=== PATIENT | female | born 1985 | race Caucasian/White ===

== ENCOUNTER 2019-12-29 16:13 | Emergency (ER) | payer MEDICAID, SELFPAY ==
[2019-12-29 16:26] VITALS: BP 149/63; PULSE 84; RESP 16; TEMP 37.2; BMI 18.0
[2019-12-29 16:29] VITALS: BP 149/63; PULSE 84; RESP 18; O2SAT 99; BMI 18.0
--- NOTE | 2019-12-29 16:53 | HMH.EDUTC ---
[facility] [place] Disposition Clinical Impression: Finger laceration Qualifiers: Encounter type: initial encounter Finger: index finger Damage to nail status: without damage Foreign body presence: without foreign body Laterality: left Qualified Code(s): S61.211A - Laceration without foreign body of left index finger without damage to nail, initial encounter Disposition: Home, Self-Care Condition on Discharge: Good Instructions: How to Care for a Laceration After Repair, DI for Laceration Repair -- Simple Additional Instructions: Keep the wound clean and dry. Keep a dressing on it if she is going to be getting it dirty. Watch the for signs of infection, such as redness, swelling, drainage, fever. etc. Give tylenol or ibuprofen for pain. Follow up with her regular doctor. Return in 7 to 10 days to have the sutures removed. GO TO THE ER FOR ANY WORSENING SYMPTOMS OR CONCERNS. Prescriptions: cephALEXin [Keflex 500mg Cap] 500 mg PO Q6H 10 Days #40 cap Transmission Status: Received by [id number] Referrals: Lake Shirley MD [Primary Care Provider] - Time of Disposition: 16:55 Medical Decision Making - Medical Records Medical records reviewed: No: I reviewed the patient's medical records. - Bebo Inquiry Pt receiving controlled substance: No Vital Signs: 12/29/19 16:26 12/29/19 16:29 12/29/19 17:00 Temperature 99 F 98.2 F Temperature Source Oral Pulse Rate 84 Pulse Rate [Right Brachial] 84 84 Respiratory Rate 16 18 18 Blood Pressure 149/63 H Blood Pressure [Right Arm] 149/63 H 149/63 H Blood Pressure Mean [Right Arm] 91 91 Blood Pressure Source [Right Arm] Automatic Cuff Automatic Cuff Blood Pressure Position [Right Arm] Sitting Sitting 02 Sat by Pulse Oximetry 99 Oxygen Delivery Method Room Air [facility] HPI - General Stated complaint: AO 12/28 1530 lac L hand Time Seen by Provider: 12/29/19 16:30 Mode of Arrival: Ambulatory Source of Information: Patient Limitations: No Limitations Description of Symptoms (Recalled from Triage Doc. by RN): PATIENT C/O LACERATION TO LEFT INDEX THAT SHE OBTAINED WHILE CUTTING UP SAUSAGES APPROX 30 MIN [employer]. PATIENT IS UP TO DATE ON HER TETANUS VACCINE HEENT Symptoms (Recalled from RN notes): No Resp Symptoms (Recalled from RN notes): No Skin Symptoms (Recalled from RN notes): Yes MS Symptoms (Recalled from RN notes): No Functional Status (Recalled from RN notes): WNL - History of Present Illness Provider Complaint: She was cutting sausage with a knife when she slipped and cut her left index finger. This happened right before she came in today. - Related Data Previous Rx's Medication Instructions Recorded cephALEXin [Keflex 500mg Cap] 500 mg PO Q6H 10 Days #40 cap 12/29/19 Allergies Allergy/AdvReac Type Severity Reaction Status Date / Time ketorolac [From Toradol] Allergy Verified 12/29/19 16:36 Penicillins Allergy Verified 10/03/17 16:21 tramadol Allergy Verified 10/03/17 16:21 - Worker's Comp Is this a Worker's Comp case?: No [facility] History - Hepatitis A Screen Drug use history?: No High risk sexual behaviors?: No History of sexually transmitted infection?: No Currently employed?: No Childcare worker?: No Do you have indoor plumbing?: Yes Do you have electricity?: Yes Attestation statement:: This patient has been screened for Hepatitis A risk factors. I have reviewed the patient's past medical history: Yes Medical History: Denies:: Diabetes Mellitus Type 1, Diabetes Mellitus Type 2, Hypertension Other Medical History: Denies: Other (gout) Other Surgeries: Yes: No Previous Surgery - Social History Smoking Status: Current every day smoker Tobacco Type: cigarettes # Packs/Day (cigarettes): 1 Alcohol Intake: never Occupational Status: other ROS Obtained: Yes All systems reviewed & no additional complaints - Constitutional Constitutional: Denies chills, Denies fever(s) - Integumentary/
[2019-12-29 17:00] VITALS: BP 149/63; PULSE 84; RESP 18; TEMP 36.8; O2SAT 99
== END 2019-12-29 17:03 | disposition home or self-care (01) ==
PROVIDERS: Emergency Provider Nurse Practitioner Family; PCP Emergency Medicine
DX: S61.211A Laceration without foreign body of left index finger without damage to nail, initial encounter (principal); W26.0XXA Contact with knife, initial encounter; Y92.010 Kitchen of single-family (private) house as the place of occurrence of the external cause; F17.210 Nicotine dependence, cigarettes, uncomplicated; Z88.0 Allergy status to penicillin
CPT/HCPCS: 12001; 99201

== ENCOUNTER 2020-06-28 18:53 | Emergency (ER) | payer MEDICAID, SELFPAY ==
[2020-06-28 18:54] VITALS: BP 137/81; PULSE 65; RESP 16; TEMP 36.6; O2SAT 99; BMI 19.5
--- NOTE | 2020-06-28 19:18 | HMH.EDUTC ---
[facility] [place] Disposition Clinical Impression: COVID-19 Disposition: Home, Self-Care Condition on Discharge: Good Instructions: DI for COVID-19 (Suspected or Confirmed ), Preventing the Spread of Coronavirus Discharge Instructions Additional Instructions: Drink plenty of fluids. Take tylenol for pain or fever. Return if you begin to have difficulty breathing. Follow up with your regular doctor. GO TO THE ER FOR ANY WORSENING SYMPTOMS Referrals: Lake Shirley MD [Primary Care Provider] - Time of Disposition: :20 Medical Decision Making - Medical Records Medical records reviewed: No: I reviewed the patient's medical records. - Bebo Inquiry Pt receiving controlled substance: No Vital Signs: 06/28/20 18:54 06/28/20 19:21 Temperature 97.8 F 97.8 F Temperature Source Oral Oral Pulse Rate 65 Pulse Rate [Right] 65 Respiratory Rate 16 16 Blood Pressure 137/81 Blood Pressure [Right Arm] 137/81 Blood Pressure Mean [Right Arm] 99 02 Sat by Pulse Oximetry 99 Orders (Tests/Meds): ORDERS Category Date Time Status Covid-19 Nasal PCR Sendout [facility] 06/28/20 19:00 Received [facility] [place] HPI - General Stated complaint: positive covid test at work Time Seen by Provider: 06/28/20 19:18 Mode of Arrival: Ambulatory Source of Information: Patient Description of Symptoms (Recalled from Triage Doc. by RN): pt request COVID test pt has no symptoms HEENT Symptoms (Recalled from RN notes): No Resp Symptoms (Recalled from RN notes): No Skin Symptoms (Recalled from RN notes): No MS Symptoms (Recalled from RN notes): No Functional Status (Recalled from RN notes): wnl - History of Present Illness Provider Complaint: She states that she works at [employer]. She is checked twice per week for covid there. Today, her swab was positive. She denies any symptoms other than she has had some nausea today. - Related Data Previous Rx's Medication Instructions Recorded cephALEXin [Keflex 500mg Cap] 500 mg PO Q6H 10 Days #40 cap 12/29/19 Allergies Allergy/AdvReac Type Severity Reaction Status Date / Time ketorolac [From Toradol] Allergy Verified 06/28/20 19:03 Penicillins Allergy Verified 06/28/20 19:03 tramadol Allergy Verified 06/28/20 19:03 - Worker's Comp Is this a Worker's Comp case?: No Is this an [facility] Worker's Comp?: No Is this a [facility] Worker's Comp?: No [facility] History - Hepatitis A Screen Drug use history?: No High risk sexual behaviors?: No History of sexually transmitted infection?: No Currently employed?: No Childcare worker?: No Do you have indoor plumbing?: Yes Do you have electricity?: Yes Attestation statement:: This patient has been screened for Hepatitis A risk factors. I have reviewed the patient's past medical history: Yes Medical History: Denies:: Diabetes Mellitus Type 1, Diabetes Mellitus Type 2, Hypertension Other Medical History: Denies: Other (gout) Other Surgeries: Yes: No Previous Surgery - Social History Smoking Status: Current every day smoker Tobacco Type: cigarettes # Packs/Day (cigarettes): 1 Alcohol Intake: never Occupational Status: other ROS Obtained: Yes All systems reviewed & no additional complaints - Constitutional Constitutional: Reports system reviewed and no additional complaints, except as docu - Eyes Eyes: Reports system reviewed and no additional complaints, except as docu - ENT Ears, Nose, Mouth, and Throat: Reports system reviewed and no additional complaints, except as docu - Cardiovascular Cardiovascular: Reports system reviewed and no additional complaints, except as docu - Respiratory Respiratory: Reports system reviewed and no additional complaints, except as docu - Gastrointestinal Gastrointestingal: Reports: system reviewed and no additional complaints, except as docu Physical Exam - General General appearance: alert, in no apparent distress - Head Head exam: atraumatic, normocephalic,
[2020-06-28 19:21] VITALS: BP 137/81; PULSE 65; RESP 16; TEMP 36.6; O2SAT 99
[2020-06-30 09:48] LABS: Covid-19 Nasal PCR Sendout P&C POSITIVE
--- NOTE | 2020-06-30 12:31 | PC.NURSE ---
PT NOTIFIED OF POSITIVE COVID RESULT
== END 2020-06-28 19:23 | disposition home or self-care (01) ==
PROVIDERS: Emergency Provider Nurse Practitioner Family; PCP Emergency Medicine
DX: U07.1 COVID-19 (principal); F17.210 Nicotine dependence, cigarettes, uncomplicated; Z88.0 Allergy status to penicillin
CPT/HCPCS: 99202; G0463; U0004

== ENCOUNTER 2020-09-23 19:06 | Emergency (ER) | payer MEDICAID, SELFPAY ==
[2020-09-23 19:10] VITALS: BP 123/92; PULSE 104; RESP 20; TEMP 36.6; O2SAT 99; BMI 21.1
--- NOTE | 2020-09-23 19:33 | HMH.EDUTC ---
[facility] [place] Clinical Impression: UTI (urinary tract infection) Qualifiers: Urinary tract infection type: acute cystitis Hematuria presence: without hematuria Qualified Code(s): N30.00 - Acute cystitis without hematuria Disposition: Home, Self-Care Condition on Discharge: Good Instructions: Urinary Tract Infection Additional Instructions: Increase fluids, water and not soda or tea. Can drink cranberry juice or cranberry extract. White front to back Wear cotton underwear Empty bladder after intercourse Start antibiotics immediately and make sure you take the full course although you may start to see improvement over the next 48 hours. You can eat yogurt or take probiotics to decrease diarrhea or yeast infection caused by the antibiotic Be sure to follow-up anytime for new or worsening symptoms in 48 hours for wound urine culture results be sure to let you PCP no recent urine for culture so they can request records and ensure that you have appropriate antibiotic if you are not getting better or getting worse. If symptoms worsen or do not improve return or be seen in the ER. Follow-up with primary care this week. Prescriptions: cephALEXin [Cephalexin 500mg Tab] 500 mg PO BID 7 Days #14 tab Transmission Status: Pending to [id number] Referrals: Lake Shirley MD [Primary Care Provider] - Time of Disposition: 19:35 Medical Decision Making - Bebo Inquiry Pt receiving controlled substance: No Vital Signs: 09/23/20 19:10 Temperature 97.8 F Temperature Source Oral Pulse Rate [Right Brachial] 104 H Respiratory Rate 20 Blood Pressure [Right Arm] 123/92 H Blood Pressure Mean [Right Arm] 102 Blood Pressure Source [Right Arm] Automatic Cuff Blood Pressure Position [Right Arm] Sitting 02 Sat by Pulse Oximetry 99 Oxygen Delivery Method Room Air [facility] HPI - General Chief complaint: Ur[facility] Stated complaint: right side pain Time Seen by Provider: 09/23/20 19:33 Mode of Arrival: Ambulatory Source of Information: Patient Limitations: No Limitations Description of Symptoms (Recalled from Triage Doc. by RN): PATIENT C/O RIGHT FLANK PAIN X 2 DAYS. HEENT Symptoms (Recalled from RN notes): No Resp Symptoms (Recalled from RN notes): No Skin Symptoms (Recalled from RN notes): No MS Symptoms (Recalled from RN notes): No Functional Status (Recalled from RN notes): WNL - History of Present Illness Provider Complaint: 35 yr old female presnets for rt flank pain and freq for 2 days - Related Data Previous Rx's Medication Instructions Recorded cephALEXin [Cephalexin 500mg Tab] 500 mg PO BID 7 Days #14 tab 09/23/20 Allergies Allergy/AdvReac Type Severity Reaction Status Date / Time ketorolac [From Toradol] Allergy Verified 06/28/20 19:03 Penicillins Allergy Verified 06/28/20 19:03 tramadol Allergy Verified 06/28/20 19:03 - Worker's Comp Is this a Worker's Comp case?: No [facility] History - Hepatitis A Screen Drug use history?: No High risk sexual behaviors?: No History of sexually transmitted infection?: No Currently employed?: No Childcare worker?: No Do you have indoor plumbing?: Yes Do you have electricity?: Yes Attestation statement:: This patient has been screened for Hepatitis A risk factors. I have reviewed the patient's past medical history: Yes Medical History: Denies:: Diabetes Mellitus Type 1, Diabetes Mellitus Type 2, Hypertension Other Medical History: Denies: Other (gout) Other Surgeries: Yes: No Previous Surgery - Social History Smoking Status: Current every day smoker Tobacco Type: cigarettes # Packs/Day (cigarettes): 1 Alcohol Intake: never Occupational Status: other ROS Obtained: Yes Systems reviewed as appropriate & no additional complaints - Constitutional Constitutional: Reports system reviewed and no additional complaints, except as docu, Denies body ache, Denies fatigue - Eyes Eyes: Reports system reviewed and no additional complaint
[2020-09-23 19:38] LABS: Apearance,Urine Cloudy (Clear); Color,Urine Dark Yellow (Yellow); Protein,Urine 1+ (Negative)
[2020-09-23 19:39] LABS: Bilirubin,Urine Negative (Negative); Blood, Urine 2+ (Negative); Glucose,Urine (UA) Negative (Negative); Ketones,Urine Negative (Negative); UTC Leukocyte Esterase,Urine 1+ (Negative); UTC Nitrate,Urine Positive (Negative); Urobilinogen,Urine 4 EU/dl (0.2)
[2020-09-23 19:40] VITALS: BP 123/92; PULSE 104; RESP 20; TEMP 36.6; O2SAT 99
== END 2020-09-23 19:45 | disposition home or self-care (01) ==
PROVIDERS: Emergency Provider Nurse Practitioner Family; PCP Emergency Medicine
DX: N30.00 Acute cystitis without hematuria (principal); B96.20 Unspecified Escherichia coli [E. coli] as the cause of diseases classified elsewhere; Z88.0 Allergy status to penicillin; F17.210 Nicotine dependence, cigarettes, uncomplicated
CPT/HCPCS: 81003; 87086; 87088; 87186; 99202; G0463

== ENCOUNTER 2022-01-26 21:29 | Emergency (ER) | payer MEDICAID, SELFPAY ==
[2022-01-26 21:30] VITALS: BP 127/78; PULSE 68; RESP 18; TEMP 36.8; O2SAT 99; BMI 24.1
[2022-01-26 21:52] VITALS: BMI 24.1
--- NOTE | 2022-01-26 21:52 | XR_ITS ---
PROCEDURE INFORMATION: Exam: XR Right Wrist Exam date and time: 01/26/2022 9:51 PM Age: 36 years old Clinical indication: Injury or trauma; Fall; Blunt trauma (contusions or hematomas); Wrist; Right; Additional info: Fall obvious deformity to wrist right TECHNIQUE: Imaging protocol: Radiologic exam of the Right wrist. Views: 3 or more views. COMPARISON: No relevant prior studies available. FINDINGS: Bones/joints: There is a comminuted, impacted and mildly displaced intra-articular fracture of the distal right radial metaphysis with mild posterior angulation. There is ulnar styloid fracture which is mildly displaced. No dislocation. 1 mm corticated osseous density adjacent to the trapezium appears chronic. Soft tissues: Miles soft tissue swelling. IMPRESSION: 1. Comminuted intra-articular fracture of the distal right radial metaphysis with mild dorsal angulation. 2. Mildly displaced ulnar styloid fracture.
--- NOTE | 2022-01-26 22:34 | PC.NURSE ---
derick on phone with dr rey
--- NOTE | 2022-01-26 22:35 | HMH.EDUPEXT ---
ED Disposition Clinical Impression: Fracture of wrist Qualifiers: Encounter type: initial encounter Fracture type: closed Laterality: right Qualified Code(s): S62.101A - Fracture of unspecified carpal bone, right wrist, initial encounter for closed fracture Disposition: Home, Self-Care Condition on Discharge: Good Instructions: DI for Wrist Fracture Additional Instructions: ice and see ortho friday Referrals: Lake Sihrley MD [Primary Care Provider] - Darvin Mcgill MD [Staff Physician] - - Critical Care Critical Care Time: No Attestation: On 01/26/22, the high probability of a clinically significant, sudden or life threatening deterioration of the following system(s) required my full and direct attention, intervention and personal management. The time I documented below is in addition to time spent performing reported procedures but includes the following listed in this critical care notation. Medical Decision Making - Medical Records Medical records reviewed: Yes: I reviewed the patient's medical records. - Bebo Inquiry Pt receiving controlled substance: No Vital Signs: 01/26/22 21:30 Temperature 98.3 F Temperature Source Oral Pulse Rate [Right] 68 Respiratory Rate 18 Blood Pressure [Right Arm] 127/78 Blood Pressure Mean [Right Arm] 94 02 Sat by Pulse Oximetry 99 - Lab Data Lab results reviewed: Yes: I reviewed the patient's lab results. Orders (Tests/Meds): ED MEDICATIONS Discontinued Medications Generic Name Dose Route Start Last Admin Trade Name Freq PRN Reason Stop Dose Admin Hydrocodone Bitart/Acetaminophen 1 tab 01/26/22 23:37 01/26/22 23:39 Hydrocodone/Apap 5/325 Mg Tablet PO 01/26/22 23:38 1 tab ONCE ONE Administration - Radiology Data #1 Image(s): Wrist Image Reviewed: Yes I have reviewed radiologist's interpretation Preliminary Findings: Abnormal - CT Data CT Scan: Other (wrist ) Time Received: 23:[address] Reviewed: Yes: I have viewed the radiologist's interpretation Preliminary Findings: Abnormal - Physician Consults Physician Consulted: candido Reason -: Pt condition Medical Decision Narrative: pt with fall with wrist fx - will splint and pt see ortho friday Upper Extremity HPI - General Chief Complaint: Extremity Injury, Upper Stated Complaint: [id number] R wrist inj Time Seen by Provider: 01/26/22 22:35 Mode of Arrival: Ambulatory Source of Information: Patient, Relative, Medical Record Limitations: No Limitations Description of Symptoms (Recalled from ER Triage Doc. by RN): pt states was wrestling with brother and lost footing and landed on rt wrist. pt c/o rt wrist pain - History of Present Illness HPI narrative: fall with acute injury rt wrist tonight - no other sig c/o MD complaint: injury to: right, wrist Onset (ago): hour(s) Other Extremity Injury: Right: wrist Other injuries: head, RLE Handedness: right Place: home Severity: moderate Context: fall Associated symptoms: denies other symptoms - Related Data Previous Rx's Medication Instructions Recorded cephALEXin [Cephalexin 500mg Tab] 500 mg PO BID 7 Days #14 tab 09/23/20 Allergies Allergy/AdvReac Type Severity Reaction Status Date / Time ketorolac [From Toradol] Allergy Verified 06/28/20 19:03 Penicillins Allergy Verified 06/28/20 19:03 tramadol Allergy Verified 06/28/20 19:03 [facility] History - Hepatitis A Screen Attestation statement:: This patient has been screened for Hepatitis A risk factors. I have reviewed the patient's past medical history: Yes Medical History: Denies:: Diabetes Mellitus Type 1, Diabetes Mellitus Type 2, Hypertension Other Medical History: Denies: Other (gout) Other Surgeries: Yes: No Previous Surgery - Social History Smoking Status: Current every day smoker Tobacco Type: cigarettes # Packs/Day (cigarettes): 1 Alcohol Intake: never Occupational Status: other ROS Obtained: Yes All systems reviewed
--- NOTE | 2022-01-26 22:38 | CT_ITS ---
PROCEDURE INFORMATION: Exam: CT Right Upper Extremity Without Contrast, Wrist Exam date and time: 01/26/2022 10:45 PM Age: 36 years old Clinical indication: Injury or trauma; Fall; Blunt trauma (contusions or hematomas); Wrist; Right; Additional info: FX TECHNIQUE: Imaging protocol: Computed tomography of the Right upper extremity without contrast. Exam focused on the wrist. 3D rendering (Not supervised by radiologist): MIP and/or 3D reconstructed images were created by the technologist. Radiation optimization: All CT scans at this facility use at least one of these dose optimization techniques: automated exposure control; mA and/or kV adjustment per patient size (includes targeted exams where dose is matched to clinical indication); or iterative reconstruction. COMPARISON: CR XR WRIST RT MIN 3V 01/26/2022 9:51 PM FINDINGS: Bones/joints: There is a comminuted impacted intra-articular fracture of the distal right radial metaphysis with mild dorsal displacement and angulation. Dorsal displacement is estimated at 6 mm. There is mildly displaced ulnar styloid fracture. Carpal bones are intact. No dislocation. Soft tissues: Normal. IMPRESSION: 1. Comminuted, impacted intra-articular fracture of the distal right radial metaphysis. There is mild dorsal displacement and angulation. 2. Mildly displaced ulnar styloid fracture.
[2022-01-26 23:49] VITALS: BP 118/82; PULSE 61; RESP 16; TEMP 36.8; O2SAT 99
== END 2022-01-26 23:53 | disposition home or self-care (01) ==
PROVIDERS: Emergency Provider Emergency Medicine; PCP Emergency Medicine
DX: S62.101A Fracture of unspecified carpal bone, right wrist, initial encounter for closed fracture (principal); Y93.89 Activity, other specified; Y92.009 Unspecified place in unspecified non-institutional (private) residence as the place of occurrence of the external cause; Y99.8 Other external cause status
CPT/HCPCS: 73110; 73200; 99284

== ENCOUNTER → 2022-01-30 10:27 | Outpatient (CLI) | payer MEDICAID, SELFPAY ==
[2022-01-30 11:28] LABS: Urine Pregnancy, HCG Qual. Negative (Negative)
[2022-01-30 11:31] LABS: Basophils # 0.1 K/mm3 (0-0.2); Basophils % 0.8 % (0.1-2.0); Eosinophils # 0.1 K/mm3 (0.0-0.4); Eosinophils % 0.7 % (0.1-12.0); Hematocrit 40.6 % (37.0-47.0); Hemoglobin 12.8 g/dL (12.2-16.2); Lymphocytes # 2.2 K/mm3 (0.7-4.5); Mean Corpuscular HGB Conc 31.4 g/dL (31.8-35.4); Mean Corpuscular Hemoglobin 32.2 pg (27.0-31.2); Mean Corpuscular Volume 102.4 fl (81-99); Mean Platelet Volume 9.9 fl (7.4-10.4); Monocytes # 0.5 K/mm3 (0.1-1.0); Monocytes % 3.3 % (1.7-9.3); Neutrophils # 11.8 K/mm3 (1.8-7.8); Neutrophils % 80.1 % (37.0-80.0); Platelet Count 321 K/mm3 (142-424); Red Blood Count 3.96 M/mm3 (4.20-5.40); White Blood Count 14.8 K/mm3 (4.8-10.8)
[2022-01-30 12:48] LABS: Alanine Aminotransferase 21 U/L (12-78); Albumin/Globulin Ratio 1.5 (1.1-1.8); Alkaline Phosphatase 91 U/L (38-126); Anion Gap 10.6 mEq/L (5-15); Aspartate Amino Transferase 26 U/L (14-36); Bilirubin,Total < 0.1 mg/dl (0.2-1.3); Blood Urea Nitrogen 6 mg/dl (7-17); Calcium 9.3 mg/dl (8.4-10.2); Carbon Dioxide 25 mmol/L (22.0-30.0); Chloride 110 mmol/L (98-107); Estimated Glomerular Filt Rate 140 ml/min (>60); GFR (African American) 170 ML/MIN (>60); Globulin 2.6 g/dL (1.3-3.2); Glucose 83 mg/dl (74-100); Potassium 3.6 mmoL/L (3.5-5.1); Sodium 142 mmol/L (136-145); Total Protein,Serum 6.6 g/dl (6.3-8.2)
== END ==
PROVIDERS: PCP Emergency Medicine; Visit Provider Orthopaedic Surgery
DX: Z01.812 Encounter for preprocedural laboratory examination (principal); Z20.822 Contact with and (suspected) exposure to COVID-19; S62.101A Fracture of unspecified carpal bone, right wrist, initial encounter for closed fracture
CPT/HCPCS: 36415; 80053; 81025; 85025; C9803; U0003; U0005

== ENCOUNTER → 2022-02-04 14:02 | Outpatient (CLI) | payer MEDICAID, SELFPAY ==
--- NOTE | 2022-02-04 14:20 | XR_ITS ---
FINAL REPORT CLINICAL HISTORY: pre-op; NICOTINE DEPENDENCE FINDINGS: 2 views of the chest were obtained . The heart is normal in size. The mediastinum is within normal limits. The lungs are clear. There is no pneumothorax. Osseous structures are unremarkable. IMPRESSION: No acute cardiopulmonary process. Reviewed, Interpreted and Dictated by Gorge Rasmussen III, MD Transcribed by Meggan Fraga Authenticated and [facility]
[2022-02-04 15:12] LABS: Basophils # 0.1 K/mm3 (0-0.2); Basophils % 0.7 % (0.1-2.0); Eosinophils # 0.3 K/mm3 (0.0-0.4); Hematocrit 42.7 % (37.0-47.0); Hemoglobin 13.2 g/dL (12.2-16.2); Lymphocytes # 3.1 K/mm3 (0.7-4.5); Mean Corpuscular Volume 99.9 fl (81-99); Mean Platelet Volume 9.6 fl (7.4-10.4); Monocytes # 0.6 K/mm3 (0.1-1.0); Monocytes % 4.1 % (1.7-9.3); Neutrophils # 9.4 K/mm3 (1.8-7.8); Neutrophils % 70.3 % (37.0-80.0); Platelet Count 386 K/mm3 (142-424); Red Blood Count 4.27 M/mm3 (4.20-5.40); Red Cell Distribution Width 12.6 % (11.5-17.5); White Blood Count 13.4 K/mm3 (4.8-10.8)
[2022-02-04 19:02] LABS: Magnesium 1.7 mg/dl (1.6-2.3)
[2022-02-04 20:04] LABS: Vitamin B12 926 pg/mL (239-931)
[2022-02-04 20:07] LABS: Folate 4.06 ng/mL
== END ==
PROVIDERS: PCP Orthopaedic Surgery; Visit Provider Emergency Medicine
DX: S62.101A Fracture of unspecified carpal bone, right wrist, initial encounter for closed fracture (principal); R89.9 Unspecified abnormal finding in specimens from other organs, systems and tissues
CPT/HCPCS: 36415; 71046; 82607; 82746; 83735; 85025

== ENCOUNTER → 2022-02-05 15:12 | Outpatient (CLI) | payer MEDICAID, SELFPAY ==
[2022-02-05 15:14] LABS: Microscopic, Urine URINE MICROSCOPIC (MICROSCOPIC)
[2022-02-05 17:42] LABS: Appearance,Urine CLEAR (Clear); Bilirubin,Urine Negative (Negative); Blood, Urine Negative (Negative); Color,Urine YELLOW (Yellow); Glucose,Urine (UA) Negative (Negative); Ketones,Urine Negative (Negative); Leukocyte Esterase,Urine Negative (Negative); Nitrate,Urine Negative (Negative); PH,Urine 6.5 (5.0-8.5); Protein,Urine Negative (Negative); Specific Gravity, Urine 1.025 (1.005-1.030); Urobilinogen,Urine 0.2 EU/dl (0.2)
[2022-02-05 17:58] LABS: WBC,Urine Occasional #/hpf (0-3)
[2022-02-05 17:59] LABS: Bacteria,Urine Trace /lpf
== END ==
PROVIDERS: PCP Emergency Medicine; Visit Provider Orthopaedic Surgery
DX: D72.829 Elevated white blood cell count, unspecified (principal)
CPT/HCPCS: 81001

== ENCOUNTER 2022-02-07 10:59 | Day surgery (SDC) | payer MEDICAID, SELFPAY ==
[2022-01-31 09:53] VITALS: BMI 23.6
--- NOTE | 2022-02-01 07:25 | SUR.PREOP ---
Pt notified that Dr. Mcgill wants to postpone surgery until Friday. Pt to come in today for CXR and UA and also see Dr. Shirley today. Pt verbalized understanding.
[2022-02-07] VITALS (12 sets, daily range): BP systolic 107–145; BP diastolic 68–96; PULSE 55–77; RESP 10–18; TEMP 36.2–43; O2SAT 93–98
[2022-02-07 11:21] LABS: Coronavirus 19, PCR Not Detected (NotDetected); Influenza A, PCR Not Detected (NotDetected); Influenza B, PCR Not Detected (NotDetected)
[2022-02-07 11:44] LABS: Basophils # 0.1 K/mm3 (0-0.2); Basophils % 0.7 % (0.1-2.0); Eosinophils # 0.2 K/mm3 (0.0-0.4); Eosinophils % 1.1 % (0.1-12.0); Hematocrit 41.9 % (37.0-47.0); Hemoglobin 13.2 g/dL (12.2-16.2); Lymphocytes # 1.9 K/mm3 (0.7-4.5); Lymphocytes % 10.9 % (10-50); Mean Corpuscular HGB Conc 31.5 g/dL (31.8-35.4); Mean Corpuscular Hemoglobin 32.3 pg (27.0-31.2); Mean Corpuscular Volume 102.6 fl (81-99); Mean Platelet Volume 9.8 fl (7.4-10.4); Monocytes # 0.6 K/mm3 (0.1-1.0); Monocytes % 3.3 % (1.7-9.3); Neutrophils # 14.6 K/mm3 (1.8-7.8); Platelet Count 332 K/mm3 (142-424); Red Blood Count 4.09 M/mm3 (4.20-5.40); Red Cell Distribution Width 13.2 % (11.5-17.5); White Blood Count 17.4 K/mm3 (4.8-10.8)
[2022-02-07 11:45] LABS: MANUAL DIFFERENTIAL MANUAL DIFFERENTIAL (MANUAL DIFF)
[2022-02-07 11:53] LABS: HCG Qualitative, Serum Negative (Negative)
[2022-02-07 12:29] LABS: Eosinophils % 1 % (0-3); Lymphocytes % 11 % (10-50); Macrocytosis 1+; Monocytes % 2 % (2-9); Neutrophils % 86 % (42-76); Platelet Estimate Normal; Total Cells Counted 100
--- NOTE | 2022-02-07 12:53 | SUR.PREOP ---
Spoke to MD Cantu @ 1250 regarding pt's continued elevated WBC and neutrophil count. MD Cantu looked at pt's chart and stated since their are no clear s/s of infection-it could be d/t broken wrist and he is fine with proceeding with scheduled surgery. MD Mcgill and OR team made aware at this time.
--- NOTE | 2022-02-07 14:21 | P.PNANES_ITS ---
[facility] Anesthesia Record Part I Anesthesia Record I Intake, IV Amount: 1,200 Estimated blood loss (mL): 100 Urine output (mL): 100 Blood Pressure: 107/68 SaO2: 96 Pulse Rate: 55 Respiratory Rate: 10 Temperature: 97.1 F Patient is:: Drowsy Stable to PACU at:: 14:13
--- NOTE | 2022-02-07 14:50 | P.PN_ITS ---
PFSH PFSH Medical History (Updated 02/07/22 @ 13:02 by Akilah Nicole RN) COVID-19 UTI (urinary tract infection) Surgical History No history of previous surgery Family History Other Epilepsy Heart attack Hypertension Social History (Updated 02/07/22 @ 13:06 by Akilah Nicole RN) Smoking Status: Current every day smoker tobacco type: cigarettes packs per day: 1 years smoked: 10 alcohol intake: current substance use type: denies use current occupational status: unemployed Travel in the last 8 weeks: None [facility] Anesthesia Checklist Patient Identification Patient Identification: Arm Band and Verbal (Name & ) Structural Data Admitted From: Inpatient Planned Operative Procedure/s: Right ORIF Consent for Planned Operative Procedure(s) Verified: Yes Verified Documents: Surgical Consent NPO Status Verified Time NPO: 00:00 Chart Verification Results Verified: HCG Additional verifications Anesthesia Reactions: No Hx Blood Transfusions: No Blood Transfusion Reaction: No Cephalosporin Allergy: No Airway Assessment C-Spine Mobility Assessed: Yes TMJ Mobility Assessed: Yes Dentition: Edentulous Neurological Assessment Level of Consciousness: Awake, Alert and Appropriate Psychosocial Assessment Concerns Regarding Surgery: none Anesthesia Plan Anesthesia Risk discussed: Yes ASA Class: II Anesthesia Type: General
--- NOTE | 2022-02-07 16:01 | XR_ITS ---
PROCEDURE INFORMATION: Exam: XR Right Wrist Exam date and time: 02/07/2022 2:40 PM Age: 36 years old Clinical indication: Pain; Wrist; Right; Additional info: Orif to right wrist. Surgery. TECHNIQUE: Imaging protocol: Radiologic exam of the Right wrist. Views: 1 or 2 views. COMPARISON: CT WRIST RT WO CON 01/26/2022 10:45 PM FINDINGS: Bones/joints: Intraoperative fixation of the right wrist. Plate and screws in place along the distal radius. Soft tissues: Normal. Other findings: Forty-one images obtained. IMPRESSION: 1. Intraoperative fixation of the right wrist. 2. Plate and screws in place along the distal radius.
--- NOTE | 2022-02-07 16:48 | P.PNANES_ITS ---
[facility] Anesthesia Record Part I Anesthesia Record I Intake, IV Amount: 800 Estimated blood loss (mL): 20 Urine output (mL): 0 Blood Pressure: 129/83 SaO2: 93 Pulse Rate: 77 Respiratory Rate: 12 Temperature: 97.4 F Patient is:: Drowsy Stable to PACU at:: 16:45
--- NOTE | 2022-02-07 21:40 | EXP.OP.NOTE ---
Date of procedure: 02/07/22 Pre-op Diagnosis:: Closed, comminuted, displaced intra-articular fracture, right distal radius Post-op Diagnosis:: Same Procedure performed:: Open reduction internal fixation, displaced fracture, right wrist Surgeon:: Darvin Mcgill MD Sales And Service Change Leader(s):: Edna Dias PA-C SOLE POLISHER:: Other (Gilberto Erickson) Anesthesia: LMA Estimated blood loss (mL): 5 Clinical Note:: Patient is a 36-year-old right-hand dominant female who sustained a closed displaced intra-articular fracture of the right distal radius following a mechanical fall about 12 days ago. Evaluation including x-rays and CT scan of the wrist showed a closed, comminuted, and displaced intra-articular fracture of the distal radius. The fracture was extending into the radiocarpal joint. Following evaluation in the office and discussion with the patient about the management options, including both nonsurgical and surgical, patient elected to proceed with surgical remediation. Patient was initially scheduled for surgery last week but surgery had to be delayed as she had elevated white cell count. Evaluation including chest x-ray and urine exam were normal. Patient was also seen by her primary care physician and cleared for surgery. Her white cell count today went up further but Dr. Cantu has recommended proceeding with surgery. Patient does not have any signs or symptoms concerning for ongoing infection. Please refer to my office note for full details. Operative findings:: Displaced, comminuted and unstable intra-articular fracture of the right distal radius as noted on the preoperative imaging. Bone quality is good. Operative note:: After appropriate workup, the patient is brought to the hospital for surgery. On the day of surgery, I met the patient in the preoperative area and again discussed the details of the procedure, risks and benefits, alternatives, and the expected outcomes. The complications discussed include but are not limited to infection, bleeding, injury to nerves, tendons and blood vessels, incisional scar (cosmesis), DVT/PE, malunion, nonunion/delayed union, loss of position, re-fracture, wrist/finger stiffness, CRPS (complex regional pain syndrome- pain, sensory and temperature changes, swelling and stiffness), painful/prominent hardware, loss of fixation/hardware failure, incomplete relief of pain, incomplete return of function, posttraumatic arthritis and likely need for further surgery in future and also the risks of anesthesia including heart attack, stroke, and . I have also explained how additional surgery may be required if there are any complications or the fracture fails to heal. We have also discussed the postoperative pain management, recovery and rehabilitation, immobilization required, the likely need for physical therapy, the possibility of stiffness, chronic pain and we've also discussed the option of nonsurgical treatment. Patient expressed a full understanding and wished to proceed with surgery as planned. The operative site/side was marked and initialed by me. Patient understood the risks, agreed to proceed with surgery, signed the consent form and no guarantees or assurances were given or implied. Patient was brought to the operating room and placed supine on the table. The right upper extremity was placed over an arm table. All the bony prominences were well padded. A general anesthesia was administered by the hyperion analyst. ?A well-padded tourniquet cuff was applied over the upper arm. The right upper extremity was prepped and draped in the usual sterile fashion. A preprocedure timeout was performed as per hospital protocol. ?Administration of prophylactic IV antibiotics (2 g of IV Ancef) was confirmed prior to starting the procedure. The skin incision was marked over the distal forearm anteriorly for the extended FCR volar approach to distal radius. Limb was exsanguinated with Esmarch bandage and tourniquet was inflated to 250 mmHg.
== END 2022-02-07 17:46 | disposition home or self-care (01) ==
PROVIDERS: PCP Emergency Medicine; Visit Provider Orthopaedic Surgery
PROC: (CPT 25608; principal; 2022-02-07 13:30)
DX: S52.571A Other intraarticular fracture of lower end of right radius, initial encounter for closed fracture (principal); S52.611A Displaced fracture of right ulna styloid process, initial encounter for closed fracture; Z20.822 Contact with and (suspected) exposure to COVID-19; W03.XXXA Other fall on same level due to collision with another person, initial encounter
CPT/HCPCS: 25608; 36415; 73100; 84703; 85007; 85025; 96374; C9803; J2405; U0003; U0005

== ENCOUNTER → 2022-02-19 09:39 | Outpatient (CLI) | payer MEDICAID, SELFPAY ==
--- NOTE | 2022-02-19 09:48 | XR_ITS ---
FINAL REPORT CLINICAL HISTORY: s/p wrist SURGERY..PAIN COMPARISON: January 26, 2022 FINDINGS: RIGHT WRIST 3 views were obtained. A splint is present which obscures some detail. There has been interval postoperative changes from ORIF of a distal radial fracture. A screw plate and multiple screws are now present. Also noted is a fracture of the ulnar styloid process. The joint spaces are intact. There is no soft tissue abnormality. IMPRESSION: Postoperative change as described. Reviewed, Interpreted and Dictated by Gorge Rasmussen III, MD Transcribed by Dyana Cr Authenticated and [facility]
== END ==
PROVIDERS: PCP Emergency Medicine; Visit Provider Orthopaedic Surgery
DX: S62.101A Fracture of unspecified carpal bone, right wrist, initial encounter for closed fracture (principal)
CPT/HCPCS: 73110

== ENCOUNTER → 2022-03-05 10:07 | Outpatient (CLI) | payer MEDICAID, SELFPAY ==
--- NOTE | 2022-03-05 10:14 | XR_ITS ---
FINAL REPORT CLINICAL HISTORY: wrist fracture, f/u, out of cast COMPARISON: February 19, 2022 FINDINGS: Right wrist Three views were obtained. Redemonstration of ulnar styloid process fracture. Post ORIF changes of the distal radius. Hardware is unremarkable. Comminuted fracture of the radial metaphysis without significant displacement. IMPRESSION: Stable post ORIF changes. Reviewed, Interpreted and Dictated by Shiela Jacobs MD Transcribed by Ramakrishna Patterson Authenticated and [facility]
== END ==
PROVIDERS: PCP Emergency Medicine; Visit Provider Physician Assistant Surgical
DX: S62.101A Fracture of unspecified carpal bone, right wrist, initial encounter for closed fracture (principal)
CPT/HCPCS: 73110

== ENCOUNTER 2022-03-05 11:11 | Outpatient (RCR) | payer MEDICAID, SELFPAY | END 2022-03-05 12:15 | disposition home or self-care (01) | LOC: OT 11:11 | PROVIDERS: Visit Provider Orthopaedic Surgery | DX: Z09 Encounter for follow-up examination after completed treatment for conditions other than malignant neoplasm (principal); S62.101A Fracture of unspecified carpal bone, right wrist, initial encounter for closed fracture | CPT/HCPCS: 97763 ==

== ENCOUNTER → 2022-04-05 11:54 | Outpatient (CLI) | payer MEDICAID, SELFPAY ==
--- NOTE | 2022-04-05 11:58 | XR_ITS ---
FINAL REPORT CLINICAL HISTORY: s/p ORIF rt wrist COMPARISON: February 2022 FINDINGS: 3 views of the right wrist were obtained. There is postoperative change from ORIF of a distal radius fracture. An ulnar stool a process fracture is again seen. Bony alignment is stable. IMPRESSION: Stable postoperative change. Reviewed, Interpreted and Dictated by Gorge Rasmussen III, MD Transcribed by Ramakrishna Patterson Authenticated and [facility]
== END ==
PROVIDERS: PCP Emergency Medicine; Visit Provider Physician Assistant Surgical
DX: S62.101A Fracture of unspecified carpal bone, right wrist, initial encounter for closed fracture (principal)
CPT/HCPCS: 73110

== ENCOUNTER 2022-04-08 13:00 | Outpatient (RCR) | payer MEDICAID, SELFPAY ==
--- NOTE | 2022-03-12 11:21 | HMH.OTOPEV ---
OT Inpatient Evaluation Rehab OT Outpatient Eval Start: 03/12/22 11:11 Freq: Status: Active Protocol: Document 03/12/22 11:12 [facility] (Rec: 03/12/22 11:21 BR[facility]NN [id number]) E-signed By Janes Motley, OT Outpatient Therapy Subjective History Subjective History Pt is a 36 year old female who reports to therapy for initial evaluation to right wrist. Pt would was wrestling with her brother when she fell and fractured rigth wrist on 01/26/22; 1. Comminuted, impacted intra-articular fracture of the distal right radial metaphysis. Mild dorsal displacement and angulation. 2. Mildly displaced ulnar styloid fracture. Pt required a open reduction internal fixation, displaced fracture, right wrist on . Pt is currently 1 week out from having cast removed and is now in a wrist cock up brace. Pt demonstrates with decreased AROM and strength at right wrist; pt is right hand dominant. Pt will continue to be seen in order to address right wrist deficits. Chief Complaint Pain,Stiff,Weakness,Decreased Vpk Teacher Strength Symptom Type Ache,Throb,Sharp,Dull,Stabbing Symptoms Relieved By Rest/Positioning Symptoms Aggravated By Physical Activity,Twisting, Lifting Prior Functional Limitations None Current Functional Limitations Reaching,Lifting,Housework, Dressing,Sleeping,Recreation Activity Symptom Description Intermittent,Activity Dependent Level of pain today (0-10) 7 Pain scale - at its best (0-10) 0 Pain scale - at its worst (0-10) 10 Wrist/Hand Eval Wrist Range of Motion Right Wrist Extension Active Range of Motion ( 8 degrees degrees) Wrist Flexion Active Range of Motion ( 26 degrees degrees) Wrist Radial Deviation Active Range of 15 degrees Motion (degrees) Wrist Ulnar Deviation Active Range of 12 degrees Motion (degrees) Forearm Supination Active Range of 70 degrees Motion (degrees)
== END 2022-04-08 13:05 | disposition home or self-care (01) ==
LOC: OT 13:00
PROVIDERS: PCP Emergency Medicine; Visit Provider Orthopaedic Surgery
DX: S62.101A Fracture of unspecified carpal bone, right wrist, initial encounter for closed fracture (principal); Z09 Encounter for follow-up examination after completed treatment for conditions other than malignant neoplasm
CPT/HCPCS: 97010; 97014; 97110; 97140; 97166; 97530; G0283

== ENCOUNTER → 2023-01-29 08:32 | Outpatient (CLI) | payer MEDICAID, SELFPAY ==
--- NOTE | 2023-01-29 08:35 | XR_ITS ---
FINAL REPORT CLINICAL HISTORY: foot pain on plantar surface of foot on the lateral side COMPARISON: 10/03/2017 FINDINGS: Right foot Three views were obtained. There is no acute fracture or dislocation. The joint spaces appear normal. No soft tissue abnormality is identified. IMPRESSION: No acute process. Reviewed, Interpreted and Dictated by Girma Chen MD Transcribed by Maryana Saavedra Authenticated and [facility]
== END ==
PROVIDERS: PCP Emergency Medicine; Visit Provider Nurse Practitioner Family
DX: M79.671 Pain in right foot (principal)
CPT/HCPCS: 73630

== ENCOUNTER 2023-05-16 19:21 | Emergency (ER) | payer MEDICAID, SELFPAY ==
[2023-05-16 19:23] VITALS: BP 136/96; PULSE 95; RESP 16; TEMP 36.9; O2SAT 97; BMI 21.1
[2023-05-16 19:39] LABS: Microscopic, Urine URINE MICROSCOPIC (MICROSCOPIC)
[2023-05-16 19:45] LABS: Appearance,Urine CLEAR (Clear); Bilirubin,Urine Negative (Negative); Blood, Urine Negative (Negative); Color,Urine YELLOW (Yellow); Glucose,Urine (UA) Negative (Negative); Ketones,Urine Negative (Negative); Leukocyte Esterase,Urine 1+ (Negative); Nitrate,Urine Negative (Negative); PH,Urine 5.5 (5.0-8.5); Protein,Urine Negative (Negative); Specific Gravity, Urine <= 1.005 (1.005-1.030); Urobilinogen,Urine 0.2 EU/dl (0.2)
[2023-05-16 20:09] LABS: Bacteria,Urine Trace /lpf
--- NOTE | 2023-05-16 20:12 | PC.NURSE ---
in room talking with patient at this time.
[2023-05-16 20:19] VITALS: BP 128/81; PULSE 90; RESP 16; TEMP 36.9; O2SAT 98
--- NOTE | 2023-05-16 21:52 | HMH.EDGENADL ---
Discharge Plan Disposition Patient Disposition: Home, Self-Care Prescriptions Prescriptions: New methocarbamol 500 mg tablet 500 mg PO Q6H PRN (Reason: pain) Qty: 30 0RF Referrals Follow up/Referrals: Agnes Coronado PA [Primary Care Provider] - See instructions Activity Restrictions/Add. Instructions Additional Instructions/Restrictions: Please follow-up with your primary care provider. Please return to the emergency department if you develop any new or worsening symptoms or become concerned for your health. Please take Robaxin as needed for pain. Please take Tylenol or Profen as needed for pain. Clinical Impressions Clinical Impression: Muscle strain of chest wall Instructions Patient Instructions: DI for Acute Abdominal Pain Discharge ED Provider: Colin Jose Adult HPI General Chief complaint: Abdominal Pain Stated complaint: lt side pain Time Seen by Provider: 05/16/23 19:42 Mode of Arrival: Ambulatory Source of Information: Patient Limitations: No Limitations Description of Symptoms (Recalled from ER Triage Doc. by RN): pt c/o LLQ pain x 3 days. pt denies n/v/d. pt states pain increasing with coughing. History of Present Illness HPI narrative: 37-year-old female, history of smoking, presents with focal left lower chest wall pain that is worse with moving around and worse with coughing or laughing. She reports no significant recent trauma, but does move around a lot. She does not remember a particular time of onset. She has a chronic smoker's cough but it is not worse than normal. She has had no fevers, no urinary symptoms, no prior abdominal surgeries, denies abdominal pain. Related Data Previous Rx's Medication Instructions Recorded methocarbamol 500 mg tablet 500 mg PO Q6H PRN pain #30 tabs 05/16/23 Allergies Allergy/AdvReac Type Severity Reaction Status Date / Time ketorolac [From Toradol] Allergy Verified 05/08/23 08:07 Penicillins Allergy Verified 05/08/23 08:07 tramadol Allergy Verified 05/08/23 08:07 [facility] Disclaimer: The information contained in this section may have been updated after the patient was seen, as this information can be updated by other users. Medical History COVID-19 UTI (urinary tract infection) Surgical History No history of previous surgery Family History Other Epilepsy Heart attack Hypertension Social History Smoking Status: Current every day smoker tobacco type: cigarettes packs per day: 1 years smoked: 10 alcohol intake: current substance use type: denies use current occupational status: unemployed Travel in the last 8 weeks: None ROS Obtained: Yes All systems reviewed & no additional complaints except as documented Physical Exam General General appearance: alert and in no apparent distress Head Head exam: atraumatic and normocephalic Eye Eye exam: Present normal appearance, PERRL and EOMI ENT ENT exam: Present normal oropharynx and normal external ear exam Neck Neck exam: Present normal inspection and full ROM Chest Chest inspection: Present normal inspection, symmetric chest wall rise and tenderness (Focal anterior lateral lower left chest wall tenderness) Respiratory Respiratory exam: Present normal lung sounds bilaterally; Absent respiratory distress Cardiovascular Cardiovascular exam: Present regular rate and normal rhythm Abdominal Exam Abdominal exam: Present soft; Absent distention, tenderness or guarding Extremities Exam Extremities exam: Present normal inspection; Absent edema or joint swelling Back Exam Back exam: Present normal inspection; Absent tenderness Neurological Exam Neurological exam: Present alert and oriented X3; Absent motor sensory deficit Psychiatric Psychiatric exam: Present normal
--- NOTE | 2023-05-22 16:36 | PC.NURSE ---
urine culture shows pseudomonas putida, pt called and aware of prescription of cipro 500 mg daily for 5 days is ordered at [facility] (pt choice) per
== END 2023-05-16 20:21 | disposition home or self-care (01) ==
PROVIDERS: Emergency Provider Emergency Medicine; PCP Physician Assistant
DX: S29.011A Strain of muscle and tendon of front wall of thorax, initial encounter (principal); R10.31 Right lower quadrant pain; F17.210 Nicotine dependence, cigarettes, uncomplicated; X58.XXXA Exposure to other specified factors, initial encounter
CPT/HCPCS: 81001; 87086; 99283

== ENCOUNTER 2023-08-13 11:15 | Outpatient (CLI) | payer MEDICAID, SELFPAY ==
[2023-08-13 11:29] LABS: Basophils # 0.1 K/mm3 (0-0.2); Basophils % 0.6 % (0.1-2.0); Eosinophils # 0.2 K/mm3 (0.0-0.4); Eosinophils % 1.3 % (0.1-12.0); Hematocrit 42.1 % (37.0-47.0); Hemoglobin 13.3 g/dL (12.2-16.2); Lymphocytes # 2.4 K/mm3 (0.7-4.5); Mean Corpuscular HGB Conc 31.7 g/dL (31.8-35.4); Mean Corpuscular Hemoglobin 33.2 pg (27.0-31.2); Mean Corpuscular Volume 104.6 fl (81-99); Mean Platelet Volume 9.6 fl (7.4-10.4); Monocytes # 0.6 K/mm3 (0.1-1.0); Monocytes % 3.8 % (1.7-9.3); Neutrophils # 11.1 K/mm3 (1.8-7.8); Neutrophils % 77.3 % (37.0-80.0); Platelet Count 304 K/mm3 (142-424); Red Blood Count 4.02 M/mm3 (4.20-5.40); Red Cell Distribution Width 12.9 % (11.5-17.5); White Blood Count 14.3 K/mm3 (4.8-10.8)
[2023-08-13 11:30] LABS: Alanine Aminotransferase 19 U/L (12-78); Albumin Level 4.5 g/dl (3.5-5.0); Albumin/Globulin Ratio 1.7 (1.1-1.8); Alkaline Phosphatase 73 U/L (38-126); Aspartate Amino Transferase 25 U/L (14-36); Bilirubin,Total 0.5 mg/dl (0.2-1.3); Blood Urea Nitrogen 10 mg/dl (7-17); Calcium 9.4 mg/dl (8.4-10.2); Carbon Dioxide 23 mmol/L (22.0-30.0); Chloride 108 mmol/L (98-107); Chol/HDL Ratio 3.1 (1-3.5); Cholesterol 168 mg/dl (140-200); Estimated Glomerular Filt Rate 112 ml/min (>60); GFR (African American) 136 ML/MIN (>60); Globulin 2.6 g/dL (1.3-3.2); Glucose 81 mg/dl (74-100); HDL Cholesterol 55 mg/dl (40-60); Sodium 140 mmol/L (136-145); Total Protein,Serum 7.1 g/dl (6.3-8.2); Triglycerides 74 mg/dl (30-150); VLDL Cholesterol 15 mg/dL (0-40)
[2023-08-13 11:41] LABS: Direct LDL Cholesterol 73.62 mg/dL (100-129)
[2023-08-13 11:46] LABS: 25-OH Vitamin D, Total 37.7 ng/mL (30-100)
[2023-08-13 12:03] LABS: Thyroid Stimulating Hormone 0.65 uIU/mL (0.465-4.68)
== END 2023-08-13 23:59 ==
LOC: LAB.DROPOF 11:15
PROVIDERS: PCP Nurse Practitioner Family; Visit Provider Nurse Practitioner Family
DX: R53.83 Other fatigue (principal); F41.9 Anxiety disorder, unspecified; F32.A Depression, unspecified; F17.210 Nicotine dependence, cigarettes, uncomplicated
CPT/HCPCS: 80053; 80061; 82306; 84443; 85025

== ENCOUNTER 2023-08-26 16:21 | Outpatient (CLI) | payer MEDICAID, SELFPAY ==
--- NOTE | 2023-08-26 16:22 | MM_ITS ---
PROCEDURE INFORMATION: Exam: MG Bilateral Screening 3D Mammography Exam date and time: 08/26/2023 4:08 PM Age: 38 years old Clinical indication: Screening examination TECHNIQUE: Imaging protocol: Bilateral Screening tomosynthesis and 2D mammography including computer-aided detection (CAD) when performed. COMPARISON: No relevant prior studies available. FINDINGS: MAMMOGRAPHY: Breast composition: There are scattered areas of fibroglandular density. Mass: None. Architectural distortion: None. Calcifications: No suspicious calcifications. Asymmetric density: None. Skin thickening: None. Axillary adenopathy: None. IMPRESSION: No mammographic evidence of malignancy. Annual screening is recommended unless otherwise clinically indicated. ASSESSMENT: BI-RADS Category 1: Negative
== END 2023-08-26 23:59 ==
LOC: RAD 16:22
PROVIDERS: PCP Nurse Practitioner Family; Visit Provider Nurse Practitioner Family
DX: Z12.31 Encounter for screening mammogram for malignant neoplasm of breast (principal)
CPT/HCPCS: 77063; 77067

== ENCOUNTER 2024-03-24 13:55 | Outpatient (CLI) | payer MEDICAID, SELFPAY ==
[2024-03-24 18:46] LABS: Basophils # 0.1 K/mm3 (0-0.2); Eosinophils # 0.2 K/mm3 (0.0-0.4); Eosinophils % 2.2 % (0.1-12.0); Hematocrit 42.2 % (37.0-47.0); Hemoglobin 14.2 g/dL (12.2-16.2); Lymphocytes # 2.9 K/mm3 (0.7-4.5); Lymphocytes % 28.4 % (10-50); Mean Corpuscular HGB Conc 33.6 g/dL (31.8-35.4); Mean Corpuscular Hemoglobin 32.1 pg (27.0-31.2); Mean Corpuscular Volume 95.7 fl (81-99); Mean Platelet Volume 9.7 fl (7.4-10.4); Monocytes # 0.7 K/mm3 (0.1-1.0); Monocytes % 6.9 % (1.7-9.3); Neutrophils # 6.2 K/mm3 (1.8-7.8); Neutrophils % 61.5 % (37.0-80.0); Platelet Count 392 K/mm3 (142-424); Red Blood Count 4.41 M/mm3 (4.20-5.40); Red Cell Distribution Width 13.2 % (11.5-17.5)
[2024-03-24 19:18] LABS: Albumin Level 4.3 g/dl (3.5-5.0); Chloride 107 mmol/L (98-107); Sodium 139 mmol/L (136-145)
[2024-03-24 19:19] LABS: Potassium 4.4 mmoL/L (3.5-5.1)
[2024-03-24 19:21] LABS: Alanine Aminotransferase 32 U/L (12-78); Albumin/Globulin Ratio 1.6 (1.1-1.8); Anion Gap 12.4 mEq/L (5-15); Aspartate Amino Transferase 31 U/L (14-36); Blood Urea Nitrogen 7 mg/dl (7-17); Carbon Dioxide 24 mmol/L (22.0-30.0); Estimated Glomerular Filt Rate 112 ml/min (>60); GFR (African American) 136 ML/MIN (>60); Globulin 2.7 g/dL (1.3-3.2)
[2024-03-24 19:22] LABS: Alkaline Phosphatase 66 U/L (38-126); Bilirubin,Total 0.3 mg/dl (0.2-1.3); Calcium 9.5 mg/dl (8.4-10.2); Chol/HDL Ratio 4.4 (1-3.5); Cholesterol 149 mg/dl (140-200); Glucose 93 mg/dl (74-100); HDL Cholesterol 34 mg/dl (40-60); Triglycerides 231 mg/dl (30-150); VLDL Cholesterol 46 mg/dL (0-40)
[2024-03-24 19:33] LABS: Direct LDL Cholesterol 61.41 mg/dL (100-129)
[2024-03-24 19:38] LABS: 25-OH Vitamin D, Total 33.2 ng/mL (30-100)
[2024-03-24 19:50] LABS: Thyroid Stimulating Hormone 1.66 uIU/mL (0.465-4.68)
[2024-03-25 01:04] LABS: HIV (1&2) Antibody Rapid NONREACTIVE (NONREACTIVE)
[2024-03-26 08:28] LABS: HCV Ab Non Reactive (Non Reactive)
== END 2024-03-24 23:59 | disposition home or self-care (01) ==
LOC: LAB.DROPOF 03-25 12:12
PROVIDERS: PCP Nurse Practitioner Family; Visit Provider Nurse Practitioner Family
DX: F31.62 Bipolar disorder, current episode mixed, moderate (principal); R06.02 Shortness of breath; R07.9 Chest pain, unspecified; F41.9 Anxiety disorder, unspecified; Z72.0 Tobacco use
CPT/HCPCS: 80050; 80053; 80061; 82306; 84443; 85025; 86803; 87389

== ENCOUNTER 2024-03-30 08:17 | Outpatient (CLI) | payer MEDICAID, SELFPAY ==
--- NOTE | 2024-03-30 08:21 | CA_ITS ---
APPROVED REPORT EXAM: Comprehensive 2D, Doppler, and color-flow Echocardiogram Aircraft Systems Repairer: Lisa Willis CRT Ht: 5 ft 7 in Wt: 141lbs BSA: 1.74 BP: 122/84 mmHg Indications: Chest Pain, Shortness of Breath, smoker, mi, epilepsy 2D Dimensions LA Volume 28.10 mL LA Volume Index 15.70 mL/m2 (M/F) 16-34 M-Mode Dimensions RVDd 2.13 cm (0.9-2.6) LA Diam 2.62 cm (1.9-4.0) LVDd 4.56 cm (3.5-5.7) LVDs 3.04 cm (3.5-5.7) IVSd 1.34 cm (0.6-1.1) PWd 0.62 cm (0.6-1.1) EF (Teich) 62.10% FS 33.30% EDV (Teich) 95.40 mL TAPSE 1.58 (<1.7) ESV (Teich) 36.20 mL LV Diastology E Decel Time 150 (160-240 msec) E/A Ratio 0.91 MED A' 7.00 cm/s LAT A' 6.70 cm/s Aortic Valve AO Peak GR. 6.10 mmHg Mitral Valve MV E Max Jimmie. 53.0 (40-130 cm/s) MV A Velocity 58.0 (40-130 cm/s) E/A Ratio 0.91 MV PHT 44.0 ms Pulmonary Valve PV Peak Velocity 116.0 (50-150 cm/s) Tricuspid Valve TR P. Velocity 137.00 cm/s RAP Estimate 10.00 mmHg RVSP 17.50 mmHg Left Ventricle The left ventricle is normal size. The left ventricular systolic function is normal. The left ventricular ejection fraction is within the normal range. There is normal left ventricular wall thickness. There is normal LV segmental wall motion. The left ventricular diastolic function is normal. LVEF is 55%. Right Ventricle The right ventricle is normal size. The right ventricular systolic function is normal. Atria The left atrium size is normal. The right atrium size is normal. There is no Doppler evidence of interatrial shunt. Aortic Valve The aortic valve opens well. There is no aortic valvular stenosis. No aortic regurgitation is present. Mitral Valve The mitral valve is normal in structure. No evidence of mitral valve stenosis. Trace mitral regurgitation. Tricuspid Valve Tricuspid valve is grossly normal in structure and function. Trace tricuspid regurgitation. There is insufficient TR jet to estimate RVSP. Pulmonic Valve The pulmonary valve is normal in structure. Trace pulmonic regurgitation. Great Vessels The aortic root is normal in size. The ascending aorta is normal in size. IVC is normal in size and collapses >50% with inspiration. Pericardium There is no pericardial effusion. Other Information Study Quality: Adequate Conclusion Normal biventricular systolic function. No significant valvular stenosis or regurgitation. Electronically signed by : Evelyne Angel MD 04/05/2024 13:18:52
== END 2024-03-30 23:59 | disposition home or self-care (01) ==
LOC: RT 08:18
PROVIDERS: PCP Nurse Practitioner Family; Visit Provider Nurse Practitioner Family
DX: R06.02 Shortness of breath (principal); R07.9 Chest pain, unspecified
CPT/HCPCS: 93306